=== PATIENT | female | born 2000 | race African-American/Black ===

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

== ENCOUNTER 2019-02-08 14:48 | Emergency (ER) | payer OTHER ==
--- NOTE | 2019-02-08 14:55 | PDOC ---
Rapid Medical Evaluation Time Seen by Provider: 02/08/19 14:53 Medical Evaluation: Allergies Allergy/AdvReac Type Severity Reaction Status Date / Time No Known Allergies Allergy Verified 02/08/19 14:53 02/08/19 14:55 HPI: Migraine x3 weeks PE: No gross deficits ORDERS: U preg Discharge Disposition - Diagnosis Headache - Referrals - Patient Instructions - Post Discharge Activity
[2019-02-08 14:59] VITALS: TEMP 98.5; BMI 25.7
[2019-02-08] MEDS ORDERED: KETOROLAC TROMETHAMINE 30 MG/1 ML VIAL IVPUSH ONE (15:32)
[2019-02-08] MEDS ORDERED: SODIUM CHLORIDE 1,000 ML IV STA (15:32)
[2019-02-08] MEDS ORDERED: METOCLOPRAMIDE HCL INJECTION 10 MG/2 ML VIAL IVPB ONE (15:32)
[2019-02-08] MEDS ORDERED: METOCLOPRAMIDE HCL INJECTION 10 MG/2 ML VIAL ONE (16:44)
[2019-02-08] MEDS ORDERED: KETOROLAC TROMETHAMINE 15 MG/ML VIAL ONE (16:55)
--- NOTE | 2019-02-08 17:47 | PDOC ---
History of Present Illness - General Chief Complaint: Migraine Headache Stated Complaint: HEADACHE Time Seen by Provider: 02/08/19 14:53 History Source: Patient Exam Limitations: No Limitations - History of Present Illness Initial Comments: 02/08/19 17:47 18-year-old female with history of migraines states was unable to alleviate this headache because she took the Imitrex too late and still was not relieved with Excedrin Migraine. Patient states when this happens, she has to come to the nearest ER to be given IV medications and then return home. Patient denies different presentation from similar previous episodes. Patient does complain of photophobia and mild nausea which she states is similar associated symptoms Timing/Duration: reports: constant Severity: Yes: moderate Associated Symptoms: reports: nausea/vomiting, other Past History - Travel Traveled outside of the country in the last 30 days: No Close contact w/someone who was outside of country & ill: No - Past Medical History Allergies/Adverse Reactions: Allergies Allergy/AdvReac Type Severity Reaction Status Date / Time No Known Allergies Allergy Verified 02/08/19 14:53 Home Medications: Ambulatory Orders Ibuprofen 600 mg PO QID PRN #20 tablet 04/22/18 COPD: No DVT: No Psychiatric Problems: Yes (bipolar) - Psycho Social/Smoking Cessation Hx Smoking Status: No Smoking History: Never smoked Have you smoked in the past 12 months: No Number of Cigarettes Smoked Daily: 0 Hx Alcohol Use: No Drug/Substance Use Hx: No Substance Use Type: None Patient Lives Alone: No Lives with/in: parents Neuro Specific PMHX - Complaint Specific PMHX Migraine: Yes Review of Systems - Review of Systems Able to Perform ROS?: Yes Constitutional: No: Symptoms Reported HEENTM: No: Symptoms Reported, Blurred Vision, Tearing, Recent change in vision Respiratory: No: Symptoms reported Cardiac (ROS): No: Symptoms Reported ABD/GI: Yes: Nausea Musculoskeletal: No: Symptoms Reported Integumentary: No: Symptoms Reported Neurological: Yes: Headache Hematologic/Lymphatic: No: Symptoms Reported *Physical Exam - Vital Signs Last Vital Signs Temp Pulse Resp BP Pulse Ox 98.5 F 110 H 22 H 114/86 98 02/08/19 14:53 02/08/19 14:53 02/08/19 14:53 02/08/19 14:53 02/08/19 14:53 - Physical Exam General Appearance: Yes: Nourished, Appropriately Dressed. No: Apparent Distress HEENT: positive: EOMI, MICHEAL, TMs Normal, Pharynx Normal. negative: Pale Conjunctivae Neck: positive: Normal Thyroid Integumentary: positive: Normal Color, Warm, Moist Neurologic: positive: Motor Strength 5/5 (Ambulatory) ED Treatment Course - ADDITIONAL ORDERS Additional order review: Laboratory Results 02/08/19 16:55 Urine HCG, Qual Negative - Medications Given in the ED: ED Medications Discontinued Medications Generic Name Dose Route Start Last Admin Trade Name Leticia PRN Reason Stop Dose Admin Sodium Chloride 1,000 mls @ 1,000 mls/hr 02/08/19 15:32 02/08/19 17:16 Normal Saline - IV 02/08/19 16:31 1,000 mls/hr ASDIR STA Administration Ketorolac Tromethamine 30 mg 02/08/19 15:32 02/08/19 17:17 Toradol Injection - IVPUSH 02/08/19 15:33 30 mg ONCE ONE Administration Metoclopramide HCl 10 mg 02/08/19 15:32 02/08/19 17:17 Reglan Injection - IVPB 02/08/19 15:33 10 mg ONCE ONE Administration Medical Decision Making - Medical Decision Making 02/08/19 16:40 Patient complaining of throbbing pressure to her forehead accompanied with photophobia and mild nausea since last night. Patient states she was taking Imitrex pain was 10-10 with no relief and then took Excedrin Migraine with minimal relief. Patient states similar symptoms and denies any visual changes or fever exam: Vital signs stable no neurofocal deficits Plan: urine preg, IV Reglan, IV Toradol and IV fluids 02/08/19 17:54 Laboratory Tests 02/08/19 16:55 Urine HCG, Qual Negative 02/08/19 17:54 Patient states feeling better requesting to be discharged. Repeat vitals stable Discharge - Discharge Information Problems reviewed: Yes Clinical Impression/Diagnosis: Headache Condition: Improved Disposition: HOME - Follow up/Referral - Patient Discharge Instructions Patient Printed Discharge Instructions: DI for Migraine Additional Instructions: Please take your medication before pain is severe. Drink plenty of fluids and avoid triggers to prevent recurring migraine - Post Discharge Activity
[2019-02-08 18:20] VITALS: BP 111/55; PULSE 93
== END 2019-02-08 18:17 | disposition home or self-care (01) ==
LOC: JER 14:48
PROC: 3E0337Z Introduction of Electrolytic and Water Balance Substance into Peripheral Vein, Percutaneous Approach (ICD-10-PCS; principal; 2019-02-08)
PROC: 3E033GC Introduction of Other Therapeutic Substance into Peripheral Vein, Percutaneous Approach (ICD-10-PCS; 2019-02-08)
PROC: 3E0333Z Introduction of Anti-inflammatory into Peripheral Vein, Percutaneous Approach (ICD-10-PCS; 2019-02-08)
DX: G43.909 Migraine, unspecified, not intractable, without status migrainosus (principal); F31.9 Bipolar disorder, unspecified
CPT/HCPCS: 84703; 96361; 96374; 96375; 99282-25; J7030